=== PATIENT | female | born 1995 | race Caucasian/White ===

== ENCOUNTER 2017-06-28 18:22 | Emergency (ER) | payer MEDICAID, OTHER ==
[~2017-06-28] VITALS: Ht 172.7 cm; Wt 55.0 kg
[~2017-06-28 18:22] MED LIST: DIFL150T PO; PREN1CAP20 PO
[2017-06-28 18:23] VITALS: BP 116/83; PULSE 99; RESP 20; TEMP 98.5; O2SAT 99
== END 2017-06-28 19:03 | disposition left against medical advice (07) ==
LOC: NEPK 18:22
DX: Z53.21 Procedure and treatment not carried out due to patient leaving prior to being seen by health care provider (principal)
CPT/HCPCS: 99281